=== PATIENT | male | born 1980 | race Caucasian/White ===

== ENCOUNTER 2018-06-20 08:20 | Inpatient (IN) | payer OTHER ==
[2018-06-11 12:23] VITALS: BMI 25.2
[2018-06-20] MEDS ORDERED: VANCOMYCIN 1,000 MG in DEXTROSE 5%-WATER - 250 ML IVPB ONE (10:00)
[2018-06-20] MEDS ORDERED: TRANEXAMIC ACID 1000 MG/10 ML VIAL IVPUSH ONE (10:00)
[2018-06-20] MEDS ORDERED: CEFAZOLIN 1 GM/D5W 1 GRAM/50 ML BAG IVPB ONE (10:00)
[2018-06-20] MEDS ORDERED: DEXAMETHASONE SOD PHOSPHATE/PF 10 MG/ML SDV ONE (10:08)
[2018-06-20] MEDS ORDERED: LIDOCAINE 1% P/F 10 MG/ML VIAL ONE (10:09)
[2018-06-20] MEDS ORDERED: MIDAZOLAM HCL 2 MG/2 ML SINGLE DOSE VIAL ONE ×3 (10:09→14:16)
[2018-06-20] MEDS ORDERED: BUPIVACAINE HCL/PF (5 MG/ML) 30 ML VIAL IJ ONE (10:09)
[2018-06-20] MEDS ORDERED: ceFAZolin SODIUM 1 GM VIAL ONE ×4 (10:36→21:34)
[2018-06-20] MEDS ORDERED: VANCOMYCIN 1,000 MG VIAL (RESTRICTED TO ID ONLY) ONE (10:36)
[2018-06-20] MEDS ORDERED: TRANEXAMIC ACID 1000 MG/10 ML VIAL ONE (10:36)
[2018-06-20] MEDS ORDERED: DEXMEDETOMIDINE HCL 200 MCG/2 ML ML IVPB ONE (10:43)
[2018-06-20] MEDS ORDERED: HEPARIN NA (PORCINE) 5,000 UNITS/ML 1ML VIAL ONE (12:03)
[2018-06-20] MEDS ORDERED: BENZOIN TINCTURE SWABSTICK TP ONE (12:04)
[2018-06-20] MEDS ORDERED: PROPOFOL 20 ML ONE (14:13)
[2018-06-20] MEDS ORDERED: ONDANSETRON 4 MG/2 ML VIAL IVPUSH PRN ×2 (15:00→15:34)
[2018-06-20] MEDS ORDERED: oxyCODONE HCL 5 MG TABLET PO PRN ×2 (15:00)
[2018-06-20] MEDS ORDERED: LACTATED RINGERS SOLUTION 1,000 ML IV SCH ×2 (15:00→15:45)
[2018-06-20] MEDS ORDERED: MAG HYDROX/AL HYDROX/SIMETH 30 ML UNIT-DOSE CUP PO PRN (15:34)
[2018-06-20] MEDS ORDERED: MAGNESIUM HYDROX 2400MG/30ML ORAL SUSPENSION 30 ML CUP PO PRN (15:34)
[2018-06-20] MEDS ORDERED: SODIUM CHLORIDE 0.9% P/F 10 ML VIAL IJ ONE (15:37)
--- NOTE | 2018-06-20 15:39 | PN ---
Progress Note (short form) - Note Progress Note: 38M s/p revision right total hip replacement (femoral and acetabular components ) POD #0. -Pain control. -DVT PPx: -Chemical: ASA 81mg PO BID x 6 weeks post-op. -Mechanical: AKBAR's, SCD's. -Incentive spirometry. -PT/OT/Rehab, OOB. -WBAT RLE. -(+) Anterolateral hip precautions. -(+) Hip abduction pillow and brace (ordered, to be delivered). -Post-op Ancef x 2 doses. -f/u post-op TOV. -f/u post-op labs labs. -Diet. -Care per medical hospitalist team. -Discharge planning: home with services; f/u [facility] [place] office Mon06/29/2018, call for appointment: . -Will follow. Brenden Nur MD (Orthopaedic Surgery).
--- NOTE | 2018-06-20 15:52 | OP ---
Operative Note - Note: Operative Date: 06/20/18 Pre-Operative Diagnosis: 1. Congenital hip dysplasia. 2. Left total hip replacement heterotopic ossification. 3. Implant failure. 4. Left hip ankylosis Operation: 1. Removal of hardware. 2. Removal of heterotopic ossification. 3. Revision left total hip replacement (femoral and acetabular components). 4. Extended trochanteric osteotomy Implants: DePuy. Poly liner - 32mm, neutral for 50mm shell. Stem - SROM, [id number], bowed. Head - metal, 32mm diameter, +9mm length. 3 x cerclage cables Post-Operative Diagnosis: Same as Pre-op Surgeon: Brenden Nur Rerecording Mixer: Mahendra Nur Anesthesiologist/JOURNEYMAN [employer]ANT OPERATOR: Monse Campos Anesthesia: Spinal Specimens Removed: 1. Right hip heterotopic ossification. 2. Right hip hardware Estimated Blood Loss (mls): 450 Drains & Tubes with Location: 1 x deep HemoVac Blood Volume Replaced (mls): 125 (Cell Saver) Fluid Volume Replaced (mls): 1,800 (Crystalloid) Operative Report Dictated: Yes
[2018-06-20] MEDS: ACETAMINOPHEN 325 MG TABLET (FP) PO SCH ×2 (17:11→22:20)
[2018-06-20] MEDS ORDERED: ACETAMINOPHEN 325 MG TABLET (FP) ONE (17:24)
[2018-06-20] MEDS: CEFAZOLIN 1 GM in DEXTROSE 5%-WATER - 50 ML IVPB SCH (20:00)
--- NOTE | 2018-06-20 21:29 | CONSULT ---
Consultation: REQUESTING PROVIDER: Dr. Nur CONSULT REQUEST: We have been asked to medically evaluate this patient for ( specify). HISTORY OF PRESENT ILLNESS: Timur Farmer Jr is a 38 yr old M, medical condition Cerebral Palsy, vit D def, hx of right hip surgery admitted for revision of right hip. Consulted for medical management. patient seen at bedside, denies n/v, chest pain, sob, dizziness. Denies hx of sleep apnea. REVIEW OF SYSTEMS: CONSTITUTIONAL: Absent: fever, chills, diaphoresis, generalized weakness, malaise, loss of appetite, weight change HEENT: Absent: rhinorrhea, nasal congestion, throat pain, throat swelling, difficulty swallowing, mouth swelling, ear pain, eye pain, visual changes CARDIOVASCULAR: Absent: chest pain, syncope, palpitations, irregular heart rate, lightheadedness , peripheral edema RESPIRATORY: Absent: cough, shortness of breath, dyspnea with exertion, orthopnea, wheezing, stridor, hemoptysis GASTROINTESTINAL: Absent: abdominal pain, abdominal distension, nausea, vomiting, diarrhea, constipation, melena, hematochezia GENITOURINARY: Absent: dysuria, frequency, urgency, hesitancy, hematuria, flank pain, genital pain MUSCULOSKELETAL: Absent: myalgia, arthralgia, joint swelling, back pain, neck pain SKIN: Absent: rash, itching, pallor HEMATOLOGIC/IMMUNOLOGIC: Absent: easy bleeding, easy bruising, lymphadenopathy, frequent infections ENDOCRINE: Absent: unexplained weight gain, unexplained weight loss, heat intolerance, cold intolerance NEUROLOGIC: Absent: headache, focal weakness or paresthesias, dizziness, unsteady gait, seizure, mental status changes, bladder or bowel incontinence PSYCHIATRIC: Absent: anxiety, depression, suicidal or homicidal ideation, hallucinations. PHYSICAL EXAMINATION Vital Signs - 24 hr 06/20/18 06/20/18 06/20/18 09:22 09:23 16:13 Temperature 98.9 F 97.8 F Pulse Rate 89 80 Respiratory 19 14 Rate Blood Pressure 128/79 105/60 O2 Sat by Pulse 97 100 Oximetry (%) 06/20/18 06/20/18 06/20/18 16:15 16:20 16:25 Temperature Pulse Rate 82 74 72 Respiratory 14 74 H 16 Rate Blood Pressure 111/62 108/54 L 108/58 L O2 Sat by Pulse 100 100 100 Oximetry (%) 06/20/18 06/20/1818 16:40 16:55 17:10 Temperature Pulse Rate 64 66 74 Respiratory 14 12 14 Rate Blood Pressure 104/56 L 107/56 L 107/58 L O2 Sat by Pulse 100 100 100 Oximetry (%) 06/20/18 06/20/18 06/20/18 17:25 17:30 18:00 Temperature 97.8 F Pulse Rate 72 72 Respiratory 16 16 Rate Blood Pressure 108/58 L 108/58 L O2 Sat by Pulse 100 100 Oximetry (%) 06/20/18 06/20/18 18:04 18:16 Temperature 98.2 F 98.2 F Pulse Rate 69 69 Respiratory 16 16 Rate Blood Pressure 107/59 L 107/59 L O2 Sat by Pulse 100 Oximetry (%) GENERAL: Awake, alert, and fully oriented, in no acute distress. HEAD: Normal with no signs of trauma. EYES: Pupils equal, round and reactive to light, extraocular movements intact, sclera anicteric, conjunctiva clear. No lid lag. EARS, NOSE, THROAT: Ears normal, nares patent, oropharynx clear without exudates. Moist mucous membranes. NECK: Normal range of motion, supple without lymphadenopathy, JVD, or masses. LUNGS: Breath sounds equal, clear to auscultation bilaterally. No wheezes, and no crackles. No accessory muscle use. HEART: Regular rate and rhythm, normal S1 and S2 without murmur, rub or gallop. ABDOMEN: Soft, nontender, not distended, normoactive bowel sounds, no guarding, no rebound, no masses. No hepatomegaly or splenomegaly. MUSCULOSKELETAL: Normal range of motion at all joints. No bony deformities or tenderness. No CVA tenderness. UPPER EXTREMITIES: 2+ pulses, warm, well-perfused. No cyanosis. No clubbing. Cap refill <2 seconds. No peripheral edema. LOWER EXTREMITIES: 2+ pulses, warm, well-perfused. No calf tenderness. No peripheral edema. NEUROLOGICAL: Cranial nerves II-XII intact. Normal speech. Normal gait. PSYCHIATRIC: Cooperative. Good eye contact. Appropriate mood and affect. SKIN: Warm, dry, normal turgor, no rashes or lesions noted. Laboratory Results - last 24 hr 06/20/18 06/20/18 06/20/18 10:25 11:20 11:28 HIV 1&2 Antibody Screen Negative HIV P24 Antigen Negative Blood Type O POSITIVE O POSITIVE Antibody Screen Negative Crossmatch IS Only See Detail Active Medications Generic Name Dose Route Start Last Admin Trade Name Freq PRN Reason Stop Dose Admin Acetaminophen 650 mg 06/20/18 15:00 06/20/18 17:11 Tylenol - PO 06/23/18 14:59 Not Given Q6H JAY Al Hydroxide/Mg Hydroxide 30 ml 06/20/18 15:34 Mylanta Oral Suspension - PO Q4H PRN DYSPEPSIA Aspirin 81 mg 06/20/18 22:00 Asa - PO BID [facility] Fentanyl 50 mcg 06/20/18 15:00 Sublimaze Injection - IVPUSH Q5M PRN PAIN-PACU ORDER X 4 DOSES ONLY Lactated Ringer's 1,000 mls @ 125 mls/hr 06/20/18 15:00 06/20/18 17:10 Lactated Ringers Solution IV Not Given ASDIR [facility] Cefazolin Sodium 1 gm/ 50 mls @ 100 mls/hr 06/20/18 20:00 Dextrose IVPB 06/21/18 04:29 Q8H [facility] Lactated Ringer's 1,000 mls @ 125 mls/hr 06/20/18 15:45 06/20/18 17:11 Lactated Ringers Solution IV 06/21/18 06:00 Not Given ASDIR [facility] Magnesium Hydroxide 30 ml 06/20/18 15:34 Milk Of Magnesia - PO PRN PRN CONSTIPATION Ondansetron HCl 4 mg 06/20/18 15:00 Zofran Injection IVPUSH Q6H PRN NAUSEA AND/OR VOMITING Ondansetron HCl 4 mg 06/20/18 15:34 Zofran Injection IVPUSH Q6H PRN NAUSEA Oxycodone HCl 5 mg 06/20/18 15:00 Roxicodone - PO Q3H PRN PAIN LEVEL 1-5 Oxycodone HCl 10 mg 06/20/18 15:00 Roxicodone - PO Q3H PRN PAIN LEVEL 6-10 Oxycodone HCl 10 mg 06/20/18 22:00 Oxycontin - PO 06/23/18 15:01 BID [facility] Pantoprazole Sodium 40 mg 06/21/18 10:00 Protonix - PO DAILY [facility] Senna/Docusate Sodium 1 tablet 06/20/18 22:00 Pericolace - PO BID [facility] ASSESSMENT/PLAN: Mr. Timur Farmer Jr is a 38 yr old M, medical condition cerebral palsy, vit d def #s/p right hip revision -pain mgt -GI/DVT prophylaxis as per Ortho -PT/OT, WBAT RLE -inc spirometer -Ancef x 2 doses as per Ortho -monitor labs post op -d/c planning as per Ortho #Cerebral Palsy-stable -not on any meds -follows with PCP, no neuro Dispo: We will continue to follow the patient. Thank you for this consultative opportunity. Visit type - Emergency Visit Emergency Visit: No - New Patient This patient is new to me today: Yes Date on this admission: 06/20/18 - Critical Care Critical Care patient: No
[2018-06-20] MEDS ORDERED: DEXTROSE 5%-WATER - 50 ML IVPB ONE (21:35)
[2018-06-20] MEDS: oxyCODONE HCL 10 MG SUSTAINED ACTING TABLET PO SCH (22:21)
[2018-06-20] MEDS: SENNOSIDES/DOCUSATE COMBO (SENNA PLUS) TABLET (UD) PO SCH (22:21)
[2018-06-20] MEDS: ASPIRIN 81 MG CHEWABLE TABLETS PO SCH (22:21)
[2018-06-20 23:32] LABS: WHITE BLOOD COUNT 12.8 K/mm3 (4.0-10.8)
[2018-06-20 23:34] LABS: HEMATOCRIT 31.7 % (35.4-49); HEMOGLOBIN 10.8 GM/dl (11.7-16.9); MCH 30.1 pg (25.7-33.7); MCHC 34.2 g/dl (32.0-35.9); MEAN CELL VOLUME 87.9 fl (80-96); MEAN PLT VOLUME 8.6 fl (7.5-11.1); PLATELET COUNT 219 K/MM3 (134-434); RDW 11.8 % (11.9-15.9)
[2018-06-20 23:45] LABS: ALBUMIN 2.8 g/dl (3.5-5.0); ALK PHOS 54 U/L (32-92); ANION GAP 6 MMOL/L (8-16); BILIRUBIN,TOTAL 0.7 mg/dl (0.2-1.0); BLOOD UREA NITROGEN 17 mg/dl (7-18); CALCIUM 7.9 mg/dl (8.4-10.2); CHLORIDE 107 mmol/L (98-107); CO2 20 mmol/L (22-28); CREATININE 0.8 mg/dl (0.6-1.3); GLUCOSE,RANDOM 111 mg/dl (74-106); POTASSIUM 3.8 mmol/L (3.5-5.1); SGOT/AST 28 U/L (10-42); SGPT/ALT 23 U/L (10-40); SODIUM 133 mmol/L (136-145); TOT PROT 5.5 g/dl (6.4-8.3)
[2018-06-20 23:48] LABS: PLATELET ESTIMATE ADEQUATE
[2018-06-21] MEDS ORDERED: ceFAZolin SODIUM 1 GM VIAL ONE (03:06)
[2018-06-21] MEDS ORDERED: DEXTROSE 5%-WATER - 50 ML IVPB ONE (03:06)
[2018-06-21] MEDS: ACETAMINOPHEN 325 MG TABLET (FP) PO SCH ×4 (03:12→22:24)
[2018-06-21] MEDS: CEFAZOLIN 1 GM in DEXTROSE 5%-WATER - 50 ML IVPB SCH (03:12)
[2018-06-21 08:31] LABS: HEMATOCRIT 29.3 % (35.4-49); HEMOGLOBIN 9.7 GM/dl (11.7-16.9); MCH 29.3 pg (25.7-33.7); MEAN CELL VOLUME 88.6 fl (80-96); MEAN PLT VOLUME 8.9 fl (7.5-11.1); PLATELET COUNT 239 K/MM3 (134-434); WHITE BLOOD COUNT 14.5 K/mm3 (4.0-10.8)
--- NOTE | 2018-06-21 08:35 | OP ---
DATE OF OPERATION: 06/20/2018 PREOPERATIVE DIAGNOSIS: Loosened right total hip arthroplasty. POSTOPERATIVE DIAGNOSIS: Loosened right total hip arthroplasty. OPERATION PERFORMED: 1. Explant of femoral component and acetabular component. 2. Transfemoral osteotomy. 3. Revision, right total hip arthroplasty. 4. Debridement of soft tissue elements extensively. This included a capsulotomy of the hip and release of adducted, contracted tissue, that is internal medial tenotomy accordingly. 5. Complex wound closure, 40 cm. ANESTHESIA: Conscious sedation with spinal anesthesia. Patient placed in supine position, brought into the operating room. Timeout was called. Right lower extremity was prepped, free draped in the routine manner with Betadine scrub solution, wiped off with alcohol, DuraPrep applied. Timeout was called. Cell Saver was available for utilization. After free draping, the right wound was opened and extended distally by about 2 inches. Operating from normal tissue to abnormal tissue with all being stuck down and adherent, the scar tissue was in that the fascial plane was recreated, exposing the entire hip abductor mechanism. It appeared as if the femoral component was internally rotated, that is retroverted, but this, because of a looseness of the component. The proximal SPA component was solidly seated. A transfemoral osteotomy was utilized, measuring 10 cm from the tip of the greater trochanter. The cut was made along the back portion of the femur and extended to a transverse cut of bone tot summit of the anterior aspect of the bone accordingly. The femoral bone bed was lifted anteriorly after careful freeing of the law between the SPA and the bone bed itself, keeping the entire fragment of bone in 1 piece. A Hohmann retractor was placed around the remaining femoral bone bed to keep the soft tissue elements well adherent to the proximal lid of the femoral osteotomy. The femoral component was delivered completely with no difficulty. The surrounding capsule was resected completely. A large amount of heterotopic ossific bone was resected around the acetabular component. Once this had been performed, the anterior, posterior, inferior retractors were placed on the cup. The cup, which was originally seated with the superolateral aspect of the acetabulum being recreated with the original femoral head, was noted to be solidly fixed. This was a [id number] implant. There was not a single sign of any metallosis or any concern of the toxic problems related to metal-metal articulation. Using vibration, the actual inner liner was removed and the new cup inserted with a polyethylene liner for a 32-mm head. Once that had been performed, the entry to the femur proved to be difficult because of the predicted bow of the femur and the pedestal on the inside of the femoral aspect of the endosteal canal which we could see would encourage the component to break out laterally. We used long drills to cut through the femoral component. It was futile to use a flexible reamer because of the nature of the appropriate bone and the configuration of the bone, and reaming was to size 13.5. The reaming was aimed at 5 cm of chatter hence the transfemoral osteotomy was limited to the approximately 10cm as delineated. A size 13 long-stem S-ROM with a B large SPA inserted with the limb in neutral position and 5 degrees of anteversion of the femoral component. A plus 9 femoral head applied to the trunnion gave almost equal leg length on the table. Size 12 had a skirted femoral component. We elected not to use this. The implant was inserted with solid fixation being achieved and solid press-fit fixation being achieved. The hip was reduced into position, put through a range of movement, found to be completely stable throughout. Remaining heterotopic ossification, particularly anteriorly of the femur, was resected to enable clearance and full flexion. Prior to the surgery , he was blocked in flexion; that is, he was unable to flex no more than 30-40 degrees. Once the heterotopic ossification, which was much isela to a tumor, once this was completely widely resected, the hip flexed completely normally. A size 32 metal plus 9 femoral head applied to the trunnion. This was reduced into position and was completely stable. The transfemoral osteotomy was positioned into anatomic position, and cables were passed close to the bone; 3 cables being utilized to tightly hold the transfemoral osteotomy in position. The bone bed was thoroughly lavaged throughout the procedure. The wounds were closed as follows: Hip abductor fascia with 1 Vicryl as the vastus lateralis with the osteotomy all fell into its anatomical normal position. This once it had been cablely positioned appropriately. The closure was as follows: Vastus lateralis 1 Vicryl, fascia 1 Vicryl, subcutaneous 1 and 2-0 Vicryl in 2 separate layers, and skin with vicky. DRAINAGE: 1/8-inch Hemovac subfascially x1. Postop x-rays revealed a lateral breach of the cortex, and readily, this was understandable, looking at the x-ray because of the bow of the femur and the encouragement of the distal end fractured out laterally because of the pedestal on the medial side of the bone bed. Even though we attempted to cut this down with the appropriate drills, this still failed to prevent this problem. However, the implant was solidly seated. Discussion with the family was held about this, and it was my judgment to express that this was extensive surgery, should be left as is, and because he is a domestic and partial community ambulator using a front-frame walker, I elected to express to the family that we should treat the patient and not the x-ray and see how he does with this. Future surgery may be necessary in the form of either: One, a full osteotomy at the isthmus which would then obviate the diaphyseal hold of a diaphyseal implant, but this would enable a long stem to be seated down the intramedullary canal. This, in my opinion, would be best treated with a possible impaction bone grafting technique because of the poor hold of the bone on this dysplastic femur. The other option, if this causes him discomfort, would be to simply resect the small area of metal that had snuck out of the side of the bone with a [employer] [place] metal-cutting tool, and this would avoid any further problems. The obvious third choice of treatment would be leave well alone if he tolerates this well clinically. No complications. Patient tolerated the operation well. Cell Saver gave back appropriate blood that had been drained accordingly. MD KENAN Sevilla/[id number] MTDD
[2018-06-21 08:42] LABS: ANION GAP 7 MMOL/L (8-16); BLOOD UREA NITROGEN 18 mg/dl (7-18); CALCIUM 7.9 mg/dl (8.4-10.2); CHLORIDE 103 mmol/L (98-107); CO2 23 mmol/L (22-28); CREATININE 0.7 mg/dl (0.6-1.3); GLUCOSE,RANDOM 126 mg/dl (74-106); POTASSIUM 3.9 mmol/L (3.5-5.1); SODIUM 133 mmol/L (136-145)
[2018-06-21] MEDS ORDERED: chlorproMAZINE HCL 25 MG TABLET PO PRN (08:44)
[2018-06-21] MEDS ORDERED: PT OWN MED DRAWER 7, Y5N ONE ×2 (09:31→11:29)
[2018-06-21] MEDS: ASPIRIN 81 MG CHEWABLE TABLETS PO SCH ×2 (09:37→22:24)
[2018-06-21] MEDS: SENNOSIDES/DOCUSATE COMBO (SENNA PLUS) TABLET (UD) PO SCH ×2 (09:37→22:23)
[2018-06-21] MEDS: oxyCODONE HCL 10 MG SUSTAINED ACTING TABLET PO SCH ×2 (09:37→22:24)
[2018-06-21] MEDS: PANTOPRAZOLE 40 MG TABLET (FP) PO SCH (09:39)
--- NOTE | 2018-06-21 11:29 | PN ---
Progress Note (short form) - Note Progress Note: POD #1 - s/p revision of right total hip replacement under spinal with nerve block. VSS. Pt. doing well, resting comfortably in chair. No complaints. Good pain control. No apparent anesthetic complications noted. Continue current care.
[2018-06-21] MEDS ORDERED: METOCLOPRAMIDE HCL 10 MG TABLET (FP) PO SCH (11:30)
[2018-06-21] MEDS: BACLOFEN 10 MG TABLET (FP) PO SCH ×2 (11:45→22:24)
--- NOTE | 2018-06-21 12:05 | PN ---
Physical Exam: SUBJECTIVE: Patient seen and examined. Feeling well, in good spirits. Complaining of intractable hiccups not resolving with thorazine. OBJECTIVE: No transfusion was required overnight. Vital Signs Period Temp Pulse Resp BP Sys/Connell Pulse Ox Last 24 Hr 97.8 F-98.8 F 64-82 12-74 104-111/54-62 99-100 GENERAL: The patient is awake, alert, and fully oriented, in no acute distress. HEAD: Normal with no signs of trauma. EYES: PERRL, extraocular movements intact, sclera anicteric, conjunctiva clear. No ptosis. ENT: Ears normal, nares patent, oropharynx clear without exudates, moist mucous membranes. NECK: Trachea midline, full range of motion, supple. LUNGS: Breath sounds equal, clear to auscultation bilaterally, no wheezes, no crackles, no accessory muscle use. HEART: Regular rate and rhythm, S1, S2 without murmur, rub or gallop. ABDOMEN: Soft, nontender, nondistended, normoactive bowel sounds, no guarding, no rebound, no hepatosplenomegaly, no masses. EXTREMITIES: 2+ pulses, warm, well-perfused, no edema. Dressing clean and dry. NEUROLOGICAL: Cranial nerves II through XII grossly intact. Normal speech, gait not observed. PSYCH: Normal mood, normal affect. SKIN: Warm, dry, normal turgor, no rashes or lesions noted. Laboratory Results - last 24 hr 06/20/18 06/20/18 06/20/18 10:25 10:25 11:20 WBC RBC Hgb Hct MCV MCH MCHC RDW Plt Count MPV Absolute Neuts (auto) Neutrophils % Neutrophils % (Manual) Band Neutrophils % Lymphocytes % Lymphocytes % (Manual) Monocytes % (Manual) Platelet Estimate Sodium Potassium Chloride Carbon Dioxide Anion Gap BUN Creatinine Creat Clearance w eGFR Random Glucose Calcium Total Bilirubin AST ALT Alkaline Phosphatase Total Protein Albumin Hep C Ab Diagnostic <0.1 HIV 1&2 Antibody Screen Negative HIV P24 Antigen Negative Blood Type O POSITIVE Antibody Screen Negative Crossmatch IS Only See Detail 06/20/18 06/20/18 06/20/18 11: 23:10 23:10 WBC 12.8 H RBC 3.60 L Hgb 10.8 L Hct 31.7 L MCV 87.9 MCH 30.1 MCHC 34.2 RDW 11.8 L Plt Count 219 MPV 8.6 Absolute Neuts (auto) 11.9 Neutrophils % No Result Required. Neutrophils % (Manual) 91.0 H* Band Neutrophils % 2.0 Lymphocytes % No Result Required. Lymphocytes % (Manual) 4.0 L Monocytes % (Manual) 3 L Platelet Estimate Adequate Sodium 133 L Potassium 3.8 Chloride 107 Carbon Dioxide 20 L Anion Gap 6 L BUN 17 Creatinine 0.8 Creat Clearance w eGFR > 60 Random Glucose 111 H Calcium 7.9 L Total Bilirubin 0.7 AST 28 ALT 23 Alkaline Phosphatase 54 Total Protein 5.5 L Albumin 2.8 L Hep C Ab Diagnostic HIV 1&2 Antibody Screen HIV P24 Antigen Blood Type O POSITIVE Antibody Screen Crossmatch IS Only 06/21/18 06/21/18 08:17 08:17 WBC 14.5 H RBC 3.30 L Hgb 9.7 L Hct 29.3 L MCV 88.6 MCH 29.3 MCHC 33.0 RDW 12.0 Plt Count 239 MPV 8.9 Absolute Neuts (auto) Neutrophils % Neutrophils % (Manual) Band Neutrophils % Lymphocytes % Lymphocytes % (Manual) Monocytes % (Manual) Platelet Estimate Sodium 133 L Potassium 3.9 Chloride 103 Carbon Dioxide 23 Anion Gap 7 L BUN 18 Creatinine 0.7 Creat Clearance w eGFR > 60 Random Glucose 126 H Calcium 7.9 L Total Bilirubin AST ALT Alkaline Phosphatase Total Protein Albumin Hep C Ab Diagnostic HIV 1&2 Antibody Screen HIV P24 Antigen Blood Type Antibody Screen Crossmatch IS Only Active Medications Generic Name Dose Route Start Last Admin Trade Name Freq PRN Reason Stop Dose Admin Acetaminophen 650 mg 06/20/18 15:00 06/21/18 09:37 Tylenol - PO 06/23/18 14:59 650 mg Q6H JAY Administration Al Hydroxide/Mg Hydroxide 30 ml 06/20/18 15:34 Mylanta Oral Suspension - PO Q4H PRN DYSPEPSIA Aspirin 81 mg 06/20/18 22:00 06/21/18 09:37 Asa - PO 81 mg BID JAY Administration Baclofen 10 mg 06/21/18 11:45 06/21/18 11:45 Lioresal - PO 10 mg TID JAY Administration Chlorpromazine HCl 25 mg 06/21/18 08:44 06/21/18 09:38 Thorazine - PO 25 mg TID PRN Administration HICCUPS Lactated Ringer's 1,000 mls @ 125 mls/hr 06/20/18 15:00 06/20/18 17:10 Lactated Ringers Solution IV Not Given ASDIR JAY Magnesium Hydroxide 30 ml 06/20/18 15:34 Milk Of Magnesia - PO PRN PRN CONSTIPATION Ondansetron HCl 4 mg 06/20/18 15:34 Zofran Injection IVPUSH Q6H PRN NAUSEA Oxycodone HCl 5 mg 06/20/18 15:00 Roxicodone - PO Q3H PRN PAIN LEVEL 1-5 Oxycodone HCl 10 mg 06/20/18 15:00 Roxicodone - PO Q3H PRN PAIN LEVEL 6-10 Oxycodone HCl 10 mg 06/20/18 22:00 06/21/18 09:37 Oxycontin - PO 06/23/18 15:01 10 mg BID JAY Administration Pantoprazole Sodium 40 mg 06/21/18 10:00 06/21/18 09:39 Protonix - PO 40 mg DAILY JAY Administration Senna/Docusate Sodium 1 tablet 06/20/18 22:00 06/21/18 09:37 Pericolace - PO 1 tablet BID JAY Administration ASSESSMENT/PLAN: 38-year-old male with CP and hip dysplasia s/p R hip revision. 1. POD #1 -Continue pain management -PA/OT, WBAT -IS -Follow H/H 2. Hiccups -Add Baclofen 10mg po q8h 3. Ppx -ASA DISPO: Anticipate dc to rehab. Dispo: We will continue to follow the patient. Thank you for this consultative opportunity.
--- NOTE | 2018-06-21 16:45 | PN ---
Progress Note (short form) - Note Progress Note: POD#1 Pt seen earlier this am. OOB to chair with a pain level of 2. Complains of hiccups since sitting up. Vital Signs Period Temp Pulse Resp BP Sys/Connell Pulse Ox Last 24 Hr 97.8 F-98.9 F 66-112 12-18 106-108/54-59 99-100 Drain-300ml lawson-clear/yellow urine 350ml GEN: A&0x3, NAD CV: RRR Lungs: CTA b/l ABD: soft, non-distended, non-tender Right Hip: Dressing c/d/i, thigh soft +2 DP pulse. 4/5 dorsi/plantar flexion. CBC, BMP // 08:17 //18 08:17 A/p: 38 yo male s/p RHR, POD#1 Weight bearing as tolerated with PT/assistance. Oral pain medications DVT ppx 81mg aspirin BID Resume oral medications Remove lawson for TOV Continue hemovac and monitor outpt D/w Dr. Nur
[2018-06-22] MEDS: ACETAMINOPHEN 325 MG TABLET (FP) PO SCH ×3 (03:54→14:37)
[2018-06-22] MEDS: BACLOFEN 10 MG TABLET (FP) PO SCH ×2 (07:03→13:36)
--- NOTE | 2018-06-22 08:00 | PN ---
Progress Note (short form) - Note Progress Note: POD #2 right revision LEVY patient seen and examined at the bedside with no complaints. He has been OOB, ambulating with walker, voiding without limitation , tolerating his diet and his pain is controlled. He denies any CP,SOB, N/V/D, fever or chills. Vital Signs Temp 98.7 F 06/22/18 06:56 Pulse 84 06/22/18 06:56 Resp 18 06/22/18 06:56 BP 99/45 L 06/22/18 06:56 Pulse Ox 100 06/22/18 06:56 Intake & Output 18 06/21/06/22/18 11:59 23:59 11:59 Intake Total 2150 1000 1075 Output Total 860 1040 390 Balance 1290 -40 685 Intake: IV 1400 875 Lactated Ringers Solution 1400 875 1,000 ml @ 125 mls/hr IV ASDIR JAY Rx#: [id number] IVPB 50 500 Oral 700 500 200 Output: Drainage 190 190 40 Right Hip 190 190 40 Urine 670 850 350 White 670 850 350 Other: Voiding Method Indwelling Catheter Urinal Bowel Movement No No CBC, BMP 06/21/18 08:17 11 08:17 PE: A&Ox3, NAD Unlabored resp on RA Right hip dressing c/d/i with surrounding tissue intact, no tracking erythema, diffuse edema appropriate to status, no evidence of active d/c, thigh soft, supple and mildly tender to palpation. Drain securely in place with Rajinder bloody /SS discharge B/L LE compartment soft, supple and non-tender with + DP pulses, +dorsi/plantar flexion intact but limited at baseline (CP),sensation to light touch intact throughout. Problem List - Problems (1) History of revision of total replacement of right hip joint Assessment/Plan: POD#2 right revision LEVY patient doing well. -Pain control. -DVT PPx: -Chemical: ASA 81mg PO BID x 6 weeks post-op. -Mechanical: AKBAR's, SCD's. -Incentive spirometry. -PT/OT/Rehab, OOB. -WBAT RLE. -(+) Anterolateral hip precautions. -(+) Hip abduction pillow and brace (ordered, to be delivered). -Care per medical hospitalist team. -Discharge planning: home with services vs rehab - f/u [facility] [place] office Mon06/29/2018, call for appointment: . Code(s): Z96.641 - PRESENCE OF RIGHT ARTIFICIAL HIP JOINT
[2018-06-22 08:36] LABS: HEMATOCRIT 25.6 % (35.4-49); HEMOGLOBIN 8.6 GM/dl (11.7-16.9); MCH 30.1 pg (25.7-33.7); MCHC 33.8 g/dl (32.0-35.9); MEAN CELL VOLUME 89.3 fl (80-96); MEAN PLT VOLUME 8.6 fl (7.5-11.1); PLATELET COUNT 190 K/MM3 (134-434); RBC 2.86 M/mm3 (4.00-5.60); RDW 12.6 % (11.9-15.9); WHITE BLOOD COUNT 9.8 K/mm3 (4.0-10.8)
[2018-06-22 08:49] LABS: ANION GAP 4 MMOL/L (8-16); BLOOD UREA NITROGEN 13 mg/dl (7-18); CALCIUM 7.3 mg/dl (8.4-10.2); CHLORIDE 109 mmol/L (98-107); CO2 23 mmol/L (22-28); CREATININE 0.6 mg/dl (0.6-1.3); GLUCOSE,RANDOM 108 mg/dl (74-106); POTASSIUM 3.4 mmol/L (3.5-5.1); SODIUM 136 mmol/L (136-145)
[2018-06-22] MEDS: ASPIRIN 81 MG CHEWABLE TABLETS PO SCH (10:16)
[2018-06-22] MEDS: oxyCODONE HCL 10 MG SUSTAINED ACTING TABLET PO SCH (10:17)
[2018-06-22] MEDS: SENNOSIDES/DOCUSATE COMBO (SENNA PLUS) TABLET (UD) PO SCH (10:17)
[2018-06-22] MEDS: PANTOPRAZOLE 40 MG TABLET (FP) PO SCH (10:17)
--- NOTE | 2018-06-22 10:24 | DS ---
"Physical Exam: SUBJECTIVE: POD #2 right revision LEVY patient seen and examined at the bedside with no complaints. He has been OOB, ambulating with walker, voiding without limitation , tolerating his diet and his pain is controlled. He denies any CP,SOB, N/V/D, fever or chills. OBJECTIVE: Vital Signs Period Temp Pulse Resp BP Sys/Connell Pulse Ox Last 24 Hr 98 F-98.9 F 84-112 17-18 91-107/45-58 94-100 PHYSICAL EXAM GENERAL: The patient is awake, alert, and fully oriented, in no acute distress. HEAD: Normal with no signs of trauma. EYES: sclera anicteric, conjunctiva clear. NECK: Trachea midline, full range of motion, supple. LUNGS: Unlabored resp on RA, no auditory wheezes, no accessory muscle use. HEART: Regular rate and rhythm, S1, S2 without murmur, rub or gallop. ABDOMEN: Soft, nontender, nondistended EXTREMITIES: Right hip dressing c/d/i with surrounding tissue intact, no tracking erythema, diffuse edema appropriate to status, no evidence of active d/ c, thigh soft,supple and mildly tender to palpation. Drain removed and drain site clean and dry with no active bleeding. B/L LE compartment soft, supple and non-tender with + DP pulses, +dorsi/plantar flexion intact but limited at baseline (CP),sensation to light touch intact throughout NEUROLOGICAL: Cranial nerves II through XII grossly intact. Normal speech, gait not observed. PSYCH: Normal mood, normal affect. SKIN: Warm, dry, normal turgor, no rashes or lesions noted. 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 Now, s/p revision right LEVY POD #1, the patient ambulated the hallways with assistance and a walker. Narcotic and non-narcotic pain management control was achieved with an oral and IV approach. POD #2, the surgical drain was removed fully intact and without incident. An xray was obtained in the OR and confirmed hardware placement at the right hip /femur with no dislocations of implant. Kaisa-operative IV ABX were administered. DVT prophylaxis was achieved with Aspirin, SCDs and early ambulation. The patient ambulated with Physical Therapy and rehab was recommended upon discharge. Narcotic scripts were checked with [facility] [employer] [employer] OPER[facility] prior to escibe. The discharge instructions and an oral pain management plan were reviewed with the patient. All questions answered. Above plan discussed with Dr. Mahendra Nur and agreed. Date of Discharge: 06/22/18 Minutes to complete discharge: 25 Discharge Summary Reason For Visit: [employer] PROFESSIONAL COMPLICATIONS Current Active Problems History of revision of total replacement of right hip joint (Acute) Condition: Stable - Instructions Diet, Activity, Other Instructions: Dr. Nur Discharge Instructions for Hip Replacement Post Operative Instructions Physical activity Physical Therapist will come to your home for the first 5 days. You will be set up with outpatient PT at your first post-operative visit. Use assistive devices for ambulation at all times. Weight bearing as tolerated on your surgical side. Wound care Leave your surgical dressing in place. Do not change the dressing until seen by your surgeon in the office. No baths or showers. Do not submerge your incision. Do not apply any ointments or lotions to your incision. Please call the office if your dressing is soiled/dirty or is falling off. Apply Graduated Compression Stockings (TEDS) to both lower extremities-remove daily for hygiene ONLY. Diet There are no dietary restrictions. Eat healthy, high-fiber foods. Drink 6 to 8 glasses of liquid each day. This will assist in keeping your bowels are regular. Pain management Any pain prescription medication ordered should be taken as prescribed for moderate to severe pain. Do not take additional Tylenol while taking Percocet. Posterior Hip Precautions: Do not cross the leg you had surgery on over your other leg. (Do not cross your legs.)Use an elevated toilet seat. Do not sit on low chairs or beds. Use purple pillow (abductor) when lying in bed. Take Aspirin 81 mg two times a day for a total of 6 weeks to prevent blood clots. Call Dr. Nur for any of the following: Severe pain not relieved by medication Fever of 101 or higher Excessive bleeding or drainage on dressing Inability to urinate If you experience chest pain or shortness of breath, please seek emergency care immediately. Please call the office at to confirm your post-op appointment for the week following surgery. This report was requested by: Breanna Mchugh | Reference #: [id number] Disposition: [facility] F[facility]ILITY - Home Medications Comprehensive Discharge Medication List: Ambulatory Orders NK [No Known Home Medication] 06/11/18 Problem List - Problems (1) History of revision of total replacement of right hip joint Assessment/Plan: POD#2 right revision LEVY patient doing well with some post op anemia, asymptomatic with no evidence of abnormal or significant bleeding. -Iron and folate -Pain control. -DVT PPx: -Chemical: ASA 81mg PO BID x 6 weeks post-op. -Mechanical: AKBAR's, SCD's. -Incentive spirometry. -PT/OT/Rehab, OOB. -WBAT RLE. -(+) Anterolateral hip precautions. -(+) Hip abduction pillow. -Care per medical hospitalist team. -Discharge planning: to rehab today - f/u [facility] [place] office Mon06/29/2018, call for appointment: . Code(s): Z96.641 - PRESENCE OF RIGHT ARTIFICIAL HIP JOINT This patient is new to me today: Yes Date on this admission: 06/22/18 Emergency Visit: No Critical Care patient: No - Discharge Referral Referred to [facility] Med P.C.: No"
[2018-06-22 14:22] VITALS: BP 113/57; PULSE 97; TEMP 98.1
[2018-06-23] MEDS ORDERED: FOLIC ACID 1 MG TABLET (FP) PO SCH (10:00)
[2018-06-23] MEDS ORDERED: FERROUS SO4 325 MG TABLET (FP) PO SCH (10:00)
--- NOTE | 2018-06-28 15:53 | PATH ---
Surgical Pathology Report Patient Name: FRANK DIAZ JR Med. Rec. #: [id number] /Age/Gender: 1980 (Age: 38) / M Account: [id number] Location: [facility] MED-SURG Taken: 06/20/2018 Received: 06/20/2018 Reported: 06/28/2018 Physicians: Brenden Nur M.D. Specimen(s) Received A: RIGHT HIP CAPSULE B: RIGHT FEMORAL MEMBRANE C: RIGHT HIP EXPLANTS Clinical History Right hip loose implant Final Diagnosis A. HIP CAPSULE, RIGHT, CAPSULECTOMY: FIBROUS CAPSULE. B. FEMORAL MEMBRANE, RIGHT, EXCISION: DENSELY SCLEROTIC FIBROUS TISSUE SHOWING OLD HEMORRHAGE, DYSTROPHIC CALCIFICATIONS AND ADHERENT/ENTRAPPED PORTIONS OF BONE. C. RIGHT HIP, EXPLANTS: HARDWARE, DESCRIBED (GROSS EXAMINATION ONLY). Electronically Signed Kate Bernstein M.D. Gross Description A. Received in formalin labeled "right hip capsule," is a 3.5 x 1.8 x 1.1 cm jeffery portion of fibrous tissue. Replacer sections are submitted in one cassette. B. Received in formalin labeled "right femoral membrane," are 2 jeffery campbell portions of fibromembranous tissue measuring 2.2 x 1.8 x 0.4 cm and 2.0 x 1.2 x 0.2 cm. Replacer sections are submitted in three cassettes. C. Received fresh labeled "right hip explants" are 4 campbell metallic portions of hardware ranging from 3.0-20.0 cm in greatest dimension, consistent with hip hardware. No soft tissue is present. No sections are submitted, gross only. 06/22/201806/22/2018
== END 2018-06-22 15:25 | DRG 467 ==
LOC: FM/S 08:20
PROVIDERS: ADMIT Orthopaedic Surgery Orthopaedic Surgery of the Spine; ATTEND Orthopaedic Surgery Orthopaedic Surgery of the Spine
PROC: 0SP90JZ Removal of Synthetic Substitute from Right Hip Joint, Open Approach (ICD-10-PCS; 2018-06-20)
PROC: 30233N1 Transfusion of Nonautologous Red Blood Cells into Peripheral Vein, Percutaneous Approach (ICD-10-PCS; 2018-06-20)
PROC: 0SR902A Replacement of Right Hip Joint with Metal on Polyethylene Synthetic Substitute, Uncemented, Open Approach (ICD-10-PCS; principal; 2018-06-20 10:00)
DX: T84.090A Other mechanical complication of internal right hip prosthesis, initial encounter (principal); E87.1 Hypo-osmolality and hyponatremia; D62 Acute posthemorrhagic anemia; G80.9 Cerebral palsy, unspecified; E55.9 Vitamin D deficiency, unspecified; Q65.89 Other specified congenital deformities of hip; Y83.8 Other surgical procedures as the cause of abnormal reaction of the patient, or of later complication, without mention of misadventure at the time of the procedure; Y79.8 Miscellaneous orthopedic devices associated with adverse incidents, not elsewhere classified; M24.651 Ankylosis, right hip
CPT/HCPCS: 36415; 73502-TC-RT; 80048; 80053; 85025; 85027; 86803; 86850; 86900; 86901; 86922; 87389; 88300-TC; 88304-TC; 88305-TC; 94760; 97116-GP; 97162-GP; J0475; J1644